=== PATIENT | female | born 1940 | race Caucasian/White ===

== ENCOUNTER 2022-11-21 12:46 | Emergency (ER) | payer MEDICARE, BC ==
[~2022-11-21] VITALS: Ht 157.5 cm; Wt 61.2 kg
[2022-11-21] MEDS ORDERED: IV NORMAL SALINE 1000 ML BAG IV ONE (13:00)
[2022-11-21] MEDS ORDERED: ONDANSETRON 4 MG/2 ML VIAL IV ONE (13:00)
[2022-11-21 13:04] LABS: HEMATOCRIT 38.7 % (31.2-41.9); MEAN CORPUSCULAR HEMOGLOBIN 30.9 uug (24.7-32.8); MEAN CORPUSCULAR VOLUME 91.2 fL (75.5-95.3); PLATELET COUNT (AUTO) 304 K/uL (179-408)
[2022-11-21] MEDS ORDERED: ONDANSETRON 4 MG/2 ML VIAL ONE (13:06)
[2022-11-21 13:14] LABS: CARBON DIOXIDE 29 mmol/L (21-32); CHLORIDE 100 mmol/L (98-107); CREATININE 0.8 mg/dL (0.6-1.3); GLUCOSE 93 mg/dL (74-106); POTASSIUM 4.1 mmol/L (3.5-5.1); UREA NITROGEN, BLOOD 19 mg/dL (7-18)
--- NOTE | 2022-11-21 13:20 | NUR ---
Family (son) at bedside and said that he wants to bring his mother to [facility] or [facility] instead of staying in this hospital. AMA? Dr Antunez notified.
--- NOTE | 2022-11-21 13:42 | NUR ---
IV removed. Catheter intact and site benign. Pressure and 4x4 gauze applied to site. No bleeding noted. Patient and family do not wish to proceed with medical care recommended by Dr. Antunez. Patient and adult son were given information related to possible complications, up to and including , which could occur as a result of leaving the hospital at this time. Patient and son verbalized understanding of risks involved due to leaving against medical advice. Patient signed AMA form. Copies of the tests' results (whatever is available at this time) were given to patient.
[2022-11-21 13:46] VITALS: BP 140/70
== END 2022-11-21 13:43 | disposition left against medical advice (07) ==
LOC: ER 12:46
DX: R55 Syncope and collapse (principal); E86.0 Dehydration; Z53.29 Procedure and treatment not carried out because of patient's decision for other reasons; Z88.2 Allergy status to sulfonamides; I10 Essential (primary) hypertension
CPT/HCPCS: 99285; 96374; 71045; 96361; 80048; 85025; 84484; 36415; 93005; J2405; J7040; A4663